=== PATIENT | male | born 1955 | race Caucasian/White ===

== ENCOUNTER 2016-12-07 19:34 | Emergency (ER) | payer MEDICAID ==
[~2016-12-07] VITALS: Ht 177.8 cm; Wt 86.4 kg
[~2016-12-07 19:34] MED LIST: CA CHLORIDE 10% 10 ML SYRINGE ONE; DEXTROSE 50% 50 ML SYRINGE ONE; EPINEPHrine 0.1 MG/ML SYG ONE; MAGNESIUM SULFATE 1 GM/100 ML D5W IVPB ONE; NA BICARBONATE 8.4% 50 ML SYG ONE
[2016-12-07 19:36] VITALS: Ht 177.8 cm; Wt 86.4 kg
[2016-12-07] MEDS ORDERED: EPINEPHrine 0.1 MG/ML SYG ONE ×4 (19:45→20:42)
[2016-12-07] MEDS ORDERED: FAMOTIDINE 20 MG INJ IV STA (20:06)
[2016-12-07] MEDS ORDERED: SOD CHLORIDE 0.9% 1,000 ML IV STA (20:06)
[2016-12-07] MEDS ORDERED: NORepinephrine 8MG/250 ML (PMX 250 ML ONE (20:11)
[2016-12-07 20:17] LABS: ADD SCAN DIFF NO
[2016-12-07 20:19] LABS: ABNORMAL IP MESSAGE 1; BASOPHIL # 0.1 10^3/ul (0.0-0.1); EOSINOPHILS % 0.3 % (0.0-7.0); HEMATOCRIT 45.7 % (42.0-52.0); HEMOGLOBIN 12.4 g/dl (14.0-18.0); LYMPHOCYTES # 2.5 10^3/ul (0.8-2.9); LYMPHOCYTES % 21.5 % (15.0-51.0); MEAN CORPUSCULAR HEMOGLOBIN 28.1 pg (29.0-33.0); MEAN CORPUSCULAR HGB CONC 27.1 g/dl (32.0-37.0); MEAN CORPUSCULAR VOLUME 103.6 fl (82.0-101.0); MONOCYTE # 0.7 10^3/ul (0.3-0.9); MONOCYTES % 5.9 % (0.0-11.0); NEUTROPHIL # 7.2 10^3/ul (1.6-7.5); NEUTROPHILS % 62.6 % (39.0-77.0); NUCLEATED RED BLOOD CELLS # 0.5 10^3/ul (0.0-0.0); PLATELET COUNT 186 10^3/UL (140-415); RED BLOOD COUNT 4.41 10^6/ul (4.70-6.10); RED CELL DISTRIBUTION WIDTH 15.3 % (11.5-14.5); WHITE BLOOD COUNT 11.5 10^3/ul (4.8-10.8)
[2016-12-07 20:22] LABS: ALBUMIN 3.2 g/dl (3.3-4.9)
[2016-12-07 20:23] LABS: INR 2.19; PROTIME 24.6 Sec (12.2-14.2); PT RATIO 1.9
[2016-12-07 20:24] LABS: PARTIAL THROMBOPLASTIN TIME 41.1 Sec (25.0-35.0)
[2016-12-07 20:25] LABS: BILIRUBIN,INDIRECT 0.7 mg/dl (0-1.1); BILIRUBIN,TOTAL 0.7 mg/dl (0.2-1.3); CREATININE 2.03 mg/dl (0.61-1.24)
[2016-12-07 20:26] LABS: ALBUMIN/GLOBULIN RATIO 1.39; CALCIUM 8.5 mg/dl (8.4-10.2); TOTAL PROTEIN 5.5 g/dl (6.1-8.1)
[2016-12-07] MEDS ORDERED: EPINEPHrine 4 MG in DEXTROSE 5% 246 ML IV SCH (20:30)
[2016-12-07] MEDS ORDERED: NORepinephrine 8MG/250 ML (PMX 250 ML IV SCH (20:30)
[2016-12-07 20:31] LABS: POTASSIUM 6.3 mmol/L (3.5-5.1)
[2016-12-07] MEDS ORDERED: ALBU18HF INHALATION (20:37)
[2016-12-07] MEDS ORDERED: CLOP75TA4 PO (20:37)
[2016-12-07] MEDS ORDERED: PRED20TA PO (20:39)
[2016-12-07] MEDS ORDERED: ADV10050 INHALATION (20:40)
[2016-12-07] MEDS ORDERED: NALOXONE 2 MG SYG ONE (20:40)
[2016-12-07] MEDS ORDERED: NA BICARBONATE 8.4% 50 ML SYG ONE (20:41)
[2016-12-07] MEDS ORDERED: INSULIN REGULAR, HUMAN 100 UNIT/1 ML 3ML VIAL IV ONE (21:00)
[2016-12-07] MEDS ORDERED: DEXTROSE 50% 50 ML SYRINGE IV ONE ×2 (21:00)
[2016-12-07] MEDS ORDERED: PANTOPRAZOLE 40 MG INJ IV ONE (21:30)
[2016-12-07] MEDS ORDERED: ADV25050 INHALATION (21:33)
[2016-12-07] MEDS ORDERED: ALBU2.5V3 NEB (21:35)
[2016-12-07] MEDS ORDERED: PRED10TA PO (21:35)
[2016-12-07 21:37] LABS: TROPONIN-I 0.141 ng/ml (0.00-0.12)
[2016-12-07] MEDS ORDERED: CARI350T29 PO (21:37)
[2016-12-07] MEDS ORDERED: [UNRECOGNIZED DRUG - CODE] PO (21:37)
[2016-12-07] MEDS ORDERED: ASPI-664 PO (21:38)
[2016-12-07] MEDS ORDERED: METO-448 PO (21:42)
[2016-12-07] MEDS ORDERED: ATOR20TA38 PO (21:42)
[2016-12-07 21:47] LABS: AADO2 Arterial 557.2 mmHg (7.0-24.0); Arterial Base Excess -14.9 mmol/L (-3.0-3); Arterial COHb 0.3 % (0.0-3.0); Arterial Fraction of Oxyhgb 84.8 % (93.0-99.0); Arterial HCO3 17.7 mmol/L (22.0-26.0); Arterial MetHb 0.4 % (0.0-1.5); Arterial Total Hemglobin 11.5 g/dl (12.0-18.0); Blood Gas Mean Airway Pressure 12; MODE VENT - AC
[2016-12-07] MEDS ORDERED: ALBUTEROL 0.083% (NEB) 2.5 MG/3 ML AMP HHN ONE (21:50)
[2016-12-07] MEDS ORDERED: [UNRECOGNIZED DRUG - OTHER] PO (21:52)
--- NOTE | 2016-12-07 21:52 | ERA ---
ER Documentation Chief Complaint Date/Time DATE: 12/07/16 TIME: 21:16 Chief Complaint Cardiac arrest,BIBA RA100 HPI This 60-year-old male is brought in by ambulance after he was found by his . CPR was initiated on seen prior to paramedics arrival. He had been given Narcan in route. Paramedics continued CPR with 6 rounds of epinephrine and regained pulses. Patient had lost pulses 1 minute prior to arriving in the emergency room once again. CPR was in progress with the patient arrived. ROS Unobtainable Medications Home Meds Reported Medications [Budesonide 200MCG] No Conflict Check, PO Y for SHORTNESS OF BREATH 12/07/16 [Extenze] No Conflict Check, PO 12/07/16 Metoprolol Tartrate* (Lopressor*) 25 Mg Tab, 12.5 MG PO BID, #60 TAB 12/07/16 Atorvastatin Calcium* (Atorvastatin Calcium*) 20 Mg Tablet, 20 MG PO QHS, #30 TAB 12/07/16 Aspirin* (Aspirin* EC) 81 Mg Tablet.dr, 81 MG PO DAILY, TAB 12/07/16 Carisoprodol* (Carisoprodol*) 350 Mg Tablet, 350 MG PO DAILY Y for MUSCLE SPASMS , TAB 12/07/16 Naproxen Sodium (MIDOL) 220 Mg Tablet, 220 MG PO DAILY, TAB 12/07/16 Albuterol Sulfate* (Albuterol Sulfate* Neb) 0.083%-3 Ml Neb, 2.5 MG NEB Q3H Y for WHEEZING AND SOB, #30 VIAL 12/07/16 Prednisone* (Prednisone*) 10 Mg Tab, 10 MG PO DAILY, TAB TAKE 4 TABS FOR 7DAYS, 2 TABS FOR 7DAYS AND 1TAB FOR 10 DAYS. 12/07/16 Salmeterol Xinaf/Fluticasone* (Advair*) 250-50 Diskus Inhaler, 1 INH INHALATION BID, #1 INHALER 12/07/16 Clopidogrel Bisulfate* (Clopidogrel Bisulfate*) 75 Mg Tablet, 75 MG PO DAILY, # 30 TAB 12/07/16 Albuterol Sulfate* (Ventolin HFA*) 18 Gm Hfa.aer.ad, 2 PUFF INHALATION Q4H, #1 INHALER 12/07/16 Discontinued Reported Medications Salmeterol Xinaf-Fluticasone* (Advair*) Unknown Strength Inhaler, 1 INH INHALATION BID, #1 INHALER 12/07/16 Prednisone* (Prednisone*) Unknown Strength Tab, MG PO DAILY, TAB 12/07/16 Allergies Allergies: Coded Allergies: No Known Allergy (Unverified , 12/07/16) Physical Exam Vitals Vital Signs Date Time Temp Pulse Resp B/P Pulse Ox O2 Delivery O2 Flow Rate FiO2 12/07/16 21:50 56 24 89 100 12/07/16 21:30 61 18 93 100 12/07/16 19:40 110 18 98 100 12/07/16 19:36 94.0 146 25 154/138 81 Physical Exam Const: [] Head: Atraumatic Eyes: Normal Conjunctiva ENT: Normal External Ears, Nose and Mouth. Neck: Full range of motion..~ No meningismus. Resp: Clear to auscultation bilaterally Cardio: Regular rate and rhythm, no murmurs Abd: Soft, non tender, non distended. Normal bowel sounds Skin: No petechiae or rashes Back: No midline or flank tenderness Ext: No cyanosis, or edema Neur: Awake and alert Psych: Normal Mood and Affect Result Diagram: 12/07/16193912/07/161939 Results 24 hrs Laboratory Tests Test 12/07/16 19:40 12/07/16 21:00 Activated Partial Thromboplast Time 41.1Sec Alanine Aminotransferase (ALT/SGPT) 4510IU/L Albumin 3.2g/dl Albumin/Globulin Ratio 1.39 Alkaline Phosphatase 154IU/L Anion Gap 31 Aspartate Amino Transf (AST/SGOT) 3593IU/L Basophils # 0.110^3/ul Basophils % 1.0% Blood Urea Nitrogen 27mg/dl Calcium Level 8.5mg/dl Carbon Dioxide Level 23mmol/L Chloride Level 99mmol/L Creatinine 2.03mg/dl Direct Bilirubin 0.00mg/dl Eosinophils # 0.010^3/ul Eosinophils % 0.3% Globulin 2.30g/dl Glucose Level 47mg/dl Hematocrit 45.7% Hemoglobin 12.4g/dl INR International Normalized Ratio 2.19 Indirect Bilirubin 0.7mg/dl Lymphocytes # 2.510^3/ul Lymphocytes % 21.5% Mean Corpuscular Hemoglobin 28.1pg Mean Corpuscular Hemoglobin Concent 27.1g/dl Mean Corpuscular Volume 103.6fl Mean Platelet Volume 10.0fl Monocytes # 0.710^3/ul Monocytes % 5.9% Neutrophils # 7.210^3/ul Neutrophils % 62.6% Nucleated Red Blood Cells # 0.510^3/ul Nucleated Red Blood Cells % 4.0/100WBC Platelet Count 93625^3/UL Potassium Level 6.3mmol/L Prothrombin Time 24.6Sec Prothrombin Time Ratio 1.9 Red Blood Count 4.4110^6/ul Red Cell Distribution Width 15.3% Sodium Level 147mmol/L Total Bilirubin 0.7mg/dl Total Protein 5.5g/dl Troponin I 0.141ng/ml White Blood Count 11.510^3/ul Arterial Blood HCO3 17.7mmol/L Arterial Blood Base Excess -14.9mmol/L Arterial Blood Oxygen Saturation 85.4mmHG Isai Test N/A Arterial Blood Gas Puncture Site Right Brachial Arterial Blood Carboxyhemoglobin 0.3% Arterial Blood Date Drawn 12/07/2016 9:40:56 PM Arterial Blood Methemoglobin 0.4% Arterial Blood pCO2 (Temp correct) 80.9mmhg Arterial Blood pH (Temp corrected) 6.959 Arterial Blood pO2 (Temp corrected) 74.9mmHG Blood Gas A-a O2 Differential 557.2mmHg Blood Gas Actual Respiration Rate 18 Blood Gas Critical Value Read Back DR. PACE Blood Gas Inspiratory Pressure 45.0 Blood Gas Mean Airway Pressure 12 Blood Gas Modality VENT - AC Blood Gas Notified Time 12/07/2016 9:47:02 PM Blood Gas Notified Whom BL Blood Gas Respiration Rate 18.0 Blood Gas Specimen Source Blood arterial Blood Gas Temperature 37.0C Blood Gas Tidal Volume 550.0mL FiO2 100.0% Oxyhemoglobin Percent 84.8% Total Hemoglobin 11.5g/dl Current Medications Medications (Trade) Dose Ordered Sig/Purnima Route PRN Reason Start Time Stop Time Status Last Admin Dose Admin Sodium Chloride (NS) 1,000 ml @ 1,000 mls/hr Q1H STAT IV 12/07/16 20:06 12/07/16 21:05 DC Famotidine 20 mg 20 mg ONCE STAT IV 12/07/16 20:06 12/07/16 20:10 DC 12/07/16 21:05 Epinephrine 4 mg/ Dextrose 250 ml @ 0 mls/hr TITRATE IV 12/07/16 20:30 12/07/16 20:32 Norepinephrine 250 ml @ ud STK-MED ONCE .ROUTE 12/07/16 20:11 12/07/16 20:12 DC Norepinephrine (Levophed) 250 ml @ 1.875 mls/ hr TITRATE IV 12/07/16 20:30 12/07/16 21:04 Insulin Human Regular (Humulin R) 10 unit ONCE ONCE IV 12/07/16 21:00 12/07/16 21:01 DC 12/07/16 21:05 Dextrose (D50w Syringe) 50 ml ONCE ONCE IV 12/07/16 21:00 12/07/16 21:01 DC Dextrose (D50w Syringe) 50 ml ONCE ONCE IV 12/07/16 21:00 12/07/16 21:01 DC Naloxone HCl (Narcan) 2 mg STK-MED ONCE .ROUTE 12/07/16 20:40 12/07/16 20:41 DC Epinephrine 1 mg STK-MED ONCE .ROUTE 12/07/16 20:40 12/07/16 20:41 DC Sodium Bicarbonate (Na Bicarb 8.4% Syg) 50 ml STK-MED ONCE .ROUTE 12/07/16 20:41 12/07/16 20:42 DC Epinephrine 1 mg STK-MED ONCE .ROUTE 12/07/16 20:41 12/07/16 20:42 DC Epinephrine 1 mg STK-MED ONCE .ROUTE 12/07/16 20:42 12/07/16 20:43 DC Pantoprazole (Protonix Iv) 80 mg ONCE ONCE IV 12/07/16 21:30 12/07/16 21:31 DC 12/07/16 21:23 Albuterol (Proventil 0.083% (Neb)) 10 mg ONCE ONCE HHN 12/07/16 21:50 12/07/16 21:55 DC Ipratropium [place] (Atrovent 0.02% (Neb)) 1 mg ONCE ONCE HHN 12/07/16 22:00 12/07/16 22:01 DC Methylprednisolone Sodium Succinate 125 mg 125 mg ONCE ONCE IV 12/07/16 22:00 12/07/16 22:01 DC Dopamine HCl/ Dextrose 250 ml @ 6.477 mls/ hr TITRATE IV 3/17/17 22:00 Procedures/MDM Cardiac arrest with multiple organ failure and GI bleed.. Patient had been pulseless for an unknown length of time prior to the bystander initiation of CPR. Following that CPR was continued for 28 minutes by paramedics prior to return of pulses. She had multiple subsequent codes in spite of being on multiple pressors receiving blood and respiratory support. Time of was 2022 Cpr was continued from paramedics beginning at 1935. Patient was intubated. He was again was given epinephrine, sodium bicarbonate, calcium chloride. Initial rhythm on pulse check was pulseless electrical activity. On the second pulse and rhythm check the patient had pulseless monomorphic V. tach. CPR was continued until shock was administered. Patient was then given 300 mg of amiodarone. CPR was continued with rounds of epinephrine. He was then given 1 mg of lidocaine. Subsequent pulse checks produced asystolic rhythm on 2 consecutive pulse checks. Psych quality CPR was performed the next pulse check had pulseless electrical activity. Patient did regain pulses. He had received 1 L of normal saline and saline was continued. Postresuscitative care was initiated. Patient initially low blood pressure epinephrine drip was ordered. Levophed drip was started while pharmacy compounded this. Once the OG tube was placed after intubation the patient had had some return of bright red blood from the stomach. It only approximately 100 mL total at this point. He was administered 20 mg of Pepcid AC as well as 80 mg of Protonix. Protonix drip was started. Blood was ordered for the patient. Patient's blood sugar returned low in potassium may remain high. He was given multiple amps of dextrose as well as 10 mg of IV insulin treatment potassium. Her abdomen treated with calcium during the code. Blood gas returned with severe acidosis and CO2 retention. Patient was given albuterol and Atrovent breathing treatments as well as Solu-Medrol. Patient began to bradycardia down in his pulse decreased. Dopamine drip was started. In spite of being on 3 pressor medications the patient did code once again. ACLS protocol was followed. Patient also given extra dextrose to the previously low sugar. He had pulseless electrical activity on rhythm check. After multiple rounds he once again did regain pulses. This point he had had 150 mL of blood return from the OG tube. I called blood bank to order unit of uncrossed blood but they said that will be ready immediately. Patient was coded a total of 5 times before even epinephrine would not increase his pulse any further. Time of was called at 2022 and family was immediately made aware. Possible etiologies of the cardiac arrest were hypoxia secondary CO2, hyperkalemia, myocardial infarction, pulmonary embolism. Critical care time 44 minutes: This does not include any billable procedures such as CPR, intubation, central line. This does include postresuscitative care , chart reviewed, discussion with multiple family members, blood products administration, multiple visits the patient's bedside to reassess hemodynamic status and maximize ventilator, pressors maximization, monitoring for blood transfusion reaction. EKG interpretation: Sinus bradycardia rate of 53, right bundle branch block, right axis deviation, ST depressions in anterolateral leads concerning for ischemia. panel monitor interpretation: Normal sinus rhythm alternating with sinus bradycardia. Patient has pulses there are no other arrhythmias. Chest x-ray interpretation: ET intubation note: Unresponsive patient was easily intubated using a 7.5 ET tube introduced through visualized cords using a MAC 4 blade. Has good compliance and bag mask ventilation. Equal breath sounds. Good color change in tidal CO2 monitor. Oxygen saturation went up to 100% after ventilator was started. Central line note: Ultrasound guidance was used to easily introduce a 7 [place] triple-lumen central line through the left femoral vein. There is good blood flow to all ports. They will flushed well. Sutured in the place. Patient tied the procedure well there no complications. Departure Diagnosis: Primary Impression: Cardiac arrest Additional Impressions: Upper GI bleed COPD exacerbation Hyperkalemia Metabolic acidosis Hypoglycemia Renal insufficiency Condition: Critical CLAIRE PACE DO Dec 07, 2016 21:39
[2016-12-07] MEDS ORDERED: METHYLPREDNISOLONE 125 MG INJ IV ONE (22:00)
[2016-12-07] MEDS ORDERED: DOPamine-D5W 1.6 MG/ML 250 ML IV SCH (22:00)
[2016-12-07] MEDS ORDERED: IPRATROPIUM (NEB) 0.5 MG/2.5 ML AMP HHN ONE (22:00)
[2016-12-07] MEDS ORDERED: BUDESONIDE PO (22:05)
[2016-12-07 22:10] VITALS: RESP 23
[2016-12-07 22:23] VITALS: BP 33/40; PULSE 0
== END 2016-12-07 22:23 | disposition expired ==
LOC: E/R 19:34
DX: I46.9 Cardiac arrest, cause unspecified (principal); K92.2 Gastrointestinal hemorrhage, unspecified; J44.1 Chronic obstructive pulmonary disease with (acute) exacerbation; E87.5 Hyperkalemia; E87.2 Acidosis; E16.2 Hypoglycemia, unspecified; N28.9 Disorder of kidney and ureter, unspecified; Z79.82 Long term (current) use of aspirin; Z87.891 Personal history of nicotine dependence
CPT/HCPCS: 31500; 36415; 36430; 36556; 36600; 76937; 80053; 82803; 84484; 85025; 85610; 85730; 86850; 86900; 86901; 86920; 92950; 94002; 94644; 96374; 96375; C9113; J0171; J1815; J2310; J7030; J7070; P9016; Z7502; Z7610; 93005; J3475